=== PATIENT | male | born 2000 ===

== ENCOUNTER 2019-11-05 14:22 | Emergency (ER) | payer BC ==
[2019-11-05] MEDS ORDERED: Sodium Chloride 0.9% 2.5 ML Syringe FLUSH PRN (14:45)
[2019-11-05] MEDS ORDERED: Sodium Chloride 0.9% 10 ML Syringe FLUSH PRN (14:45)
[2019-11-05] MEDS ORDERED: Morphine 4 MG/ML Syringe IVPUSH ONE (14:45)
[2019-11-05] MEDS ORDERED: Lactated Ringers 1,000 ML IV ONE (14:45)
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
[2019-11-05 15:31] LABS: BLOOD UREA NITROGEN,BUN 15 mg/dL (7.0-18.0); CARBON DIOXIDE,CO2 24.9 mmol/L (21.0-32.0); CHLORIDE,CL 101 mmol/L (98-107); GLUCOSE RANDOM 102 mg/dL (74-106); LIPASE 82 U/L (73-393); POTASSIUM,K 3.5 mmol/L (3.5-5.1); SODIUM,NA 138 mmol/L (136-148)
[2019-11-05] MEDS ORDERED: Iopamidol 755 Mg/ML 100 ML Bottle IVPUSH ONE (15:43)
--- NOTE | 2019-11-05 15:54 | CT ---
CT chest Technique: Multiple axial sections were obtained through the chest. Intravenous contrast was not utilized. Comparison: No previous chest imaging is available. Findings: Mediastinum and hilar regions appear normal. No mediastinal hematoma is seen. No pericardial thickening is seen. Visualized upper abdominal structures shows no discrete abnormality. Lung window settings show no acute parenchymal change. No pleural effusions are noted. No pneumothorax is appreciated. Bone window settings were reviewed. No clavicular fracture is noted. Scapular appears without fracture. Left shoulder shows no fracture. Left humerus shows no fracture. No discrete rib fracture is appreciated. Sagittal images show no sternal fracture. Vertebral body heights are preserved. No discrete fracture within the thoracic spine is seen. No fracture is appreciated within the left elbow. Impression: 1. Nothing acute is appreciated on noncontrast CT study of the chest which also includes the left upper extremity to the elbow. Diagnostic code #1 This report was dictated in MDT
--- NOTE | 2019-11-05 16:24 | CT ---
CT abdomen and pelvis Technique: Multiple axial sections were obtained from above the dome of the diaphragm inferiorly through the pubic symphysis. Intravenous contrast was utilized. No oral contrast has been given. Findings: Visualized lung bases show nothing acute. Liver contains no focal parenchymal abnormality. Spleen appears within normal limits. Adrenal glands show no nodule. Kidneys show symmetric contrast enhancement without hydronephrosis or mass. Pancreas appears within normal limits. Gallbladder contains no calcified gallstones. Aorta shows no aneurysm. No retroperitoneal adenopathy or mesenteric abnormalities are seen. No pelvic mass or adenopathy is seen. No free fluid or inflammatory change is appreciated. Very slight increased density is noted within the left flank along the posterior left abdominal musculature compatible with small subcutaneous hematoma. Bone window settings were reviewed which shows no acute osseous finding. Impression: 1. Mild subcutaneous hematoma within the left flank adjacent to the posterior left abdominal musculature. 2. No other acute finding is seen on CT study of the abdomen and pelvis. Diagnostic code #2 This report was dictated in MDT
== END 2019-11-05 18:14 | disposition home or self-care (01) ==
LOC: MW.ED 14:22
DX: S30.1XXA Contusion of abdominal wall, initial encounter (principal); S20.212A Contusion of left front wall of thorax, initial encounter; Z79.899 Other long term (current) drug therapy; V86.56XA Driver of dirt bike or motor/cross bike injured in nontraffic accident, initial encounter
CPT/HCPCS: 36415; 71250; 74177; 80053; 81003; 83690; 84484; 85025; 85610; 85730; 93005; 96374; 99285; J2270; J7120; Q9967; 99284